=== PATIENT | male | born 1940 | race Caucasian/White ===

== ENCOUNTER 2022-07-16 12:24 | Emergency (ER) | payer MEDICARE, OTHER, SELFPAY ==
[2022-07-16] VITALS (10 sets, daily range): BP systolic 145–196; BP diastolic 70–104; PULSE 58–71; RESP 12–21; O2SAT 97–99; BMI 23.7
--- NOTE | 2022-07-16 12:36 | DI.RAD.S_ITS ---
PROCEDURE: XR CHEST 1V INDICATIONS: Shortness of breath TECHNIQUE: One view of the chest was acquired. COMPARISON: None. FINDINGS: Surgical changes and devices: None. Lungs and pleura: No focal consolidation. Dense nodule overlying the right mid lung measuring 1 cm along with smaller nodules of the right lung likely representing granulomas. No pleural effusions or pneumothorax. Mediastinum: Mediastinal contours appear normal. Heart size is normal. Bones and chest wall: No suspicious bony lesions. Overlying soft tissues appear unremarkable. IMPRESSION: No evidence of an acute cardiopulmonary abnormality. Likely granulomas of the right lung. Confirmation with outpatient CT could be performed if clinically warranted. Dictated by: Castro Baeza D.O. on 07/16/2022 at 11:56 Approved by: Castro Baeza D.O. on 07/16/2022 at 11:57
[2022-07-16 12:50] LABS: Add Manual Diff / Slide Review NO; Basophils Absolute Auto 100 /uL (0-100); Basophils Percent Auto 1.5 % (0-2); Eosinophils Absolute Auto 0 /uL (0-450); Eosinophils Percent Auto 0.6 % (2-4); Hematocrit 40.2 % (41-53); Hemoglobin 13.7 g/dL (13.5-17.5); Lymphocytes Absolute Auto 800 /uL (1100-4500); Lymphocytes Percent Auto 19.2 % (25-40); Mean Corpuscular Hemoglobin 30.1 PG (26-34); Mean Corpuscular Volume 88.5 fL (80-100); Monocytes Absolute Auto 300 /uL (0-900); Monocytes Percent Auto 7.1 % (3-14); Neutrophils Absolute Auto 2900 /uL (1500-7000); Neutrophils Percent Auto 71.6 % (50-75); Platelet Count 158 X10^3/uL (150-400); Red Blood Cell Count 4.55 X10^6/uL (4.5-5.9); Red Cell Distribution Width 13.5 % (11.6-14.8); White Blood Cell Count 4.1 X10^3/uL (4.5-11.0)
[2022-07-16 12:55] LABS: INR 1.1 (0.9-1.3); Prothrombin Time 12.3 SECONDS (10.1-12.7)
[2022-07-16 13:01] LABS: Alanine Aminotransferase 32 IU/L (<50); Albumin 4.5 g/dL (3.5-5.0); Albumin Globulin Ratio 1.7 (1.0-2.8); Alkaline Phosphatase 45 U/L (38-126); Aspartate Aminotransferase 30 IU/L (17-59); BUN Creatinine Ratio 19.5 (6-22); Blood Urea Nitrogen 15 mg/dL (9-20); Carbon Dioxide 34 mmol/L (22-32); Chloride 98 mmol/L (98-107); Estimated Glomerular Filt Rate > 60 mL/min (>60); Globulin 2.7 g/dL (1.7-4.1); Glucose 168 mg/dL (80-110); HEMOLYSIS < 15 (0-50); Potassium 3.4 mmol/L (3.4-5.1); Sodium 139 mmol/L (137-145); Total Protein 7.2 g/dL (6.3-8.2)
[2022-07-16 13:02] LABS: Lactate (Lactic Acid) 1.3 mmol/L (0.7-2.1)
[2022-07-16 13:13] LABS: NT-proBNP (BNP-Adult 18+) 754 pg/mL (<450); Troponin I 0.038 ng/mL (0.01-0.034)
--- NOTE | 2022-07-16 15:22 | ED_ITS ---
HPI - SOB/Dyspnea General Chief Complaint: Shortness of Breath/Dyspnea Stated Complaint: SOB, high B/P, pain, Gerd Time Seen by Provider: 07/16/22 13:41 History of Present Illness HPI Narrative: Patient 81-year-old male history of hypertension presenting today with increased difficulty breathing he reports that over the last 1 month he is had increasing orthopnea requiring him to sleep in a recliner. He says that at nighttime he has a freeze peripheral edema in his legs but actually does get better and go away when he is up and walking. He has some shortness of breath with exertion but it does not necessarily stop him. Some mild acid reflux but no significant pain. He is coughing clear phlegm no hemoptysis. She denies any fever or chills. He is having some random lower abdominal discomfort but still having bowel movements no nausea or vomiting. The pain is not significant today. He reports that last night he had severe episodes where he felt like he could not breathe and happened 2 times. He does have a remote history of prostate cancer. He is noted some increased difficulty voiding. He is no known coronary artery disease or congestive heart failure. He was a former smoker but only smoked for 1-2 years many years ago. Related Data Previous Rx's Medication Instructions Recorded furosemide 20 mg tablet 20 mg PO DAILY #3 tabs 07/16/22 Review of Systems Review of Systems ROS Unobtainable: All systems reviewed & are unremarkable except as noted in HPI and below Exam Initial Vital Signs Initial Vital Signs: Vital Signs Pulse Rate 71 07/16/22 12:33 Respiratory Rate 16 07/16/22 12:33 Blood Pressure 196/104 H 07/16/22 12:33 Pulse Oximetry 98 07/16/22 12:33 Oxygen Delivery Method Room Air 07/16/22 12:33 GENERAL: Alert pleasant 81-year-old male and in no acute distress. HEENT: Head atraumatic,EOMI, pupils reactive, face symmetric, moist mucous membranes CARDIOVASCULAR: Regular rate and rhythm without murmurs, rubs or gallops. RESPIRATORY: Breath sounds equal bilaterally, no wheezes rales or rhonchi. No conversational dyspnea. ABDOMEN: Soft, nontender. Normoactive bowel sounds all 4 quadrants. No guarding or rebound. EXTREMITIES: Normal range of motion, no clubbing or edema. Neurovascularly intact NEUROLOGICAL: Alert and oriented x4. SKIN: Warm, dry, no laceration, no petechiae, no rashes or lesions. Course Orders Ordered: ED Orders 07/16/22 12:36 XR chest 1V Stat EKG-12 Lead Stat Measure peak expiratory flow ONCE RT Consult Eval and Treat NOW 07/16/22 12:40 Complete Blood Count AUTO DIFF Stat Comprehensive Metabolic Panel Stat Lactate (Lactic Acid) Stat NT-proBNP (BNP-Adult 18+) Stat Prothrombin Time INR Stat Troponin I Stat 07/16/22 14:53 Trop I [Troponin I] Stat Discontinued Medications Furosemide (Furosemide 40 Mg/4 Ml Vial) 20 mg IV NOW ONE Stop: 07/16/22 15:40 Last Admin: 07/16/22 15:50 Dose: 20 mg Documented By: PRICILLA Vital Signs Vital signs: Vital Signs - 8 hr 07/16/22 12:33 07/16/22 12:35 07/16/22 12:35 Pulse Rate 71 71 Respiratory Rate 16 Blood Pressure 196/104 H 196/104 H Pulse Oximetry 98 98 Oxygen Delivery Method Room Air 07/16/22 12:44 07/16/22 12:44 07/16/22 12:45 Pulse Rate 70 Respiratory Rate 17 Blood Pressure 190/85 H 177/84 H Pulse Oximetry 99 Oxygen Delivery Method 07/16/22 12:45 07/16/22 13:00 07/16/22 13:00 Pulse Rate 66 63 Respiratory Rate 18 17 Blood Pressure 146/73 H Pulse Oximetry 99 98 Oxygen Delivery Method 07/16/22 13:15 07/16/22 13:15 07/16/22 13:30 Pulse Rate 60 58 L Respiratory Rate 15 20 Blood Pressure 148/71 H Pulse Oximetry 98 97 Oxygen Delivery Method 07/16/22 13:31 07/16/22 13:31 07/16/22 13:45 Pulse Rate 59 L Respiratory Rate 21 Blood Pressure 161/84 H 145/70 H Pulse Oximetry 98 Oxygen Delivery Method 07/16/22 13:45 07/16/22 17:10 Pulse Rate 59 L 58 L Respiratory Rate 17 12 Blood Pressure 175/80 H Pulse Oximetry 97 97 Oxygen Delivery Method Room Air MDM - SOB/Dyspnea Lab Data 07/16/22 12:40 07/16/22 12:40 Labs: Lab Results 07/16/22 07/16/22 07/16/22 Range/Units 12:40 12:40 12:40 WBC 4.1 L (4.5-11.0) X10^3/uL RBC 4.55 (4.5-5.9) X10^6/uL Hgb 13.7 (13.5-17.5) g/dL Hct 40.2 L (41-53) % MCV 88.5 (80-100) fL MCH 30.1 (26-34) PG MCHC 34.0 (30-36) % RDW 13.5 (11.6-14.8) % Plt Count 158 (150-400) X10^3/uL Neut % (Auto) 71.6 (50-75) % Lymph % (Auto) 19.2 L (25-40) % [place] % (Auto) 7.1 (3-14) % Eos % (Auto) 0.6 L (2-4) % Baso % (Auto) 1.5 (0-2) % Neut # (Auto) 2900 (6543-0852) /uL Lymph # (Auto) 800 L (5174-5252) /uL [place] # (Auto) 300 (0-900) /uL Eos # (Auto) 0 (0-450) /uL Baso # (Auto) 100 (0-100) /uL PT 12.3 (10.1-12.7) SECONDS INR 1.1 (0.9-1.3) Sodium 139 (137-145) mmol/L Potassium 3.4 (3.4-5.1) mmol/L Chloride 98 (98-107) mmol/L Carbon Dioxide 34 H (22-32) mmol/L BUN 15 (9-20) mg/dL Creatinine 0.77 (0.66-1.25) mg/dL Estimated GFR > 60 (>60) mL/min BUN/Creatinine Ratio 19.5 (6-22) Glucose 168 H (80-110) mg/dL Lactate (0.7-2.1) mmol/L Calcium 9.0 (8.4-10.2) mg/dL Total Bilirubin 1.0 (0.2-1.3) mg/dL AST 30 (17-59) IU/L ALT 32 (<50) IU/L Alkaline Phosphatase 45 (38-126) U/L Troponin I 0.038 H (0.01-0.034) ng/mL NT-Pro-B Natriuret Pep 754 H (<450) pg/mL Total Protein 7.2 (6.3-8.2) g/dL Albumin 4.5 (3.5-5.0) g/dL Globulin 2.7 (1.7-4.1) g/dL Albumin/Globulin Ratio 1.7 (1.0-2.8) 07/16/22 07/16/22 Range/Units 12:40 14:53 WBC (4.5-11.0) X10^3/uL RBC (4.5-5.9) X10^6/uL Hgb (13.5-17.5) g/dL Hct (41-53) % MCV (80-100) fL MCH (26-34) PG MCHC (30-36) % RDW (11.6-14.8) % Plt Count (150-400) X10^3/uL Neut % (Auto) (50-75) % Lymph % (Auto) (25-40) % [place] % (Auto) (3-14) % Eos % (Auto) (2-4) % Baso % (Auto) (0-2) % Neut # (Auto) (8382-2372) /uL Lymph # (Auto) (4465-6257) /uL [place] # (Auto) (0-900) /uL Eos # (Auto) (0-450) /uL Baso # (Auto) (0-100) /uL PT (10.1-12.7) SECONDS INR (0.9-1.3) Sodium (137-145) mmol/L Potassium (3.4-5.1) mmol/L Chloride (98-107) mmol/L Carbon Dioxide (22-32) mmol/L BUN (9-20) mg/dL Creatinine (0.66-1.25) mg/dL Estimated GFR (>60) mL/min BUN/Creatinine Ratio (6-22) Glucose (80-110) mg/dL Lactate 1.3 (0.7-2.1) mmol/L Calcium (8.4-10.2) mg/dL Total Bilirubin (0.2-1.3) mg/dL AST (17-59) IU/L ALT (<50) IU/L Alkaline Phosphatase (38-126) U/L Troponin I 0.034 (0.01-0.034) ng/mL NT-Pro-B Natriuret Pep (<450) pg/mL Total Protein (6.3-8.2) g/dL Albumin (3.5-5.0) g/dL Globulin (1.7-4.1) g/dL Albumin/Globulin Ratio (1.0-2.8) Urine Dip Bedside Urine Glucose Negative Bedside Urine Bilirubin - Negative Bedside Urine Ketone +/- 5 Urine Specific Taylor 1.015 Bedside Urine Occult Blood +/- Bedside Urine pH 6.5 Bedside Urine Protein - Negative Bedside Urine Urobilinogen - Negative Bedside Urine Nitrite - Negative Bedside Urine Leukocytes - Negative Esterase Imaging Data Chest x-ray: Radiologist's Impression: PROCEDURE:? XR CHEST 1V ? INDICATIONS:? Shortness of breath ? TECHNIQUE:? One view of the chest was acquired.? ? COMPARISON:? None. ? FINDINGS:? ? Surgical changes and devices:? None.? ? Lungs and pleura:? No focal consolidation.? Dense nodule overlying the right mid lung measuring 1 cm along with smaller nodules of the right lung likely representing granulomas.? No pleural effusions or pneumothorax.? ? Mediastinum:? Mediastinal contours appear normal.? Heart size is normal.? ? Bones and chest wall:? No suspicious bony lesions.? Overlying soft tissues appear unremarkable.? ? IMPRESSION:? ? No evidence of an acute cardiopulmonary abnormality. ? Likely granulomas of the right lung.? Confirmation with outpatient CT could be performed if clinically warranted.? ? ? Dictated by: Castro Baeza D.O. on 07/16/2022 at 11:56 ? ? ECG Data Interpretation: EKG 1. Normal sinus rhythm rate 69 NJ interval 138 QRS [address] changes no Q-waves EKG 2. Sinus rhythm rate 57 similar to previous no changes from prior MDM Narrative Medical decision making narrative: Patient 81-year-old male presenting today with increased shortness of breath and orthopnea. Symptoms are consistent with congestive heart failure although he does not have a history. BNP is not significantly elevated 754 troponins are also negative in decreasing. He has no significant lower extremity edema on exam. X-rays negative for significant pulmonary edema. He is not hypoxic and has no conversational dyspnea. At this time I think reasonable to put him on a few days of diuretics with outpatient follow-up for echocardiogram. He has normal EKGs and no EKG changes. No leukocytosis anemia infection. He also has no signs or symptoms infection. He apparently does have remote history of prostate cancer but similar not consistent with pulmonary embolism. Discharge Plan Departure Patient Disposition: Home Clinical Impression: CHF (congestive heart failure) Instructions: DI for Heart Failure Activity Restrictions/Additional Instructions: *You have been diagnosed with congestive heart failure *What to do: At this time you will need an outpatient echocardiogram and further testing with her PCP. Hopefully start breathing better over the next couple of days. *Continue to take medications as directed Lasix 20 mg once a day for 3 days starting tomorrow *Follow up with your primary care provider in 2-3 days or call [phone] *Return to ER if you should have increasing chest pain shortness of breath fever chills palpitations or any new, worsening or concerning symptoms Prescriptions: New furosemide 20 mg tablet 20 mg PO DAILY Qty: 3 0RF Referrals: Lizeth Isabel PA-C [Primary Care Provider] - Stand Alone Forms: Patient Portal/API
[2022-07-16 15:29] LABS: Troponin I 0.034 ng/mL (0.01-0.034)
[2022-07-16] MEDS: FUROSEMIDE 40 MG/4 ML VIAL 20 MG IV (15:50)
--- NOTE | 2022-07-16 16:23 | PC.NURSE ---
patient states that's he was not able to pee all of his urine out and he has a history of prostate cancer. Post void residual was 150 mls. notified.
== END 2022-07-16 17:13 | disposition home or self-care (01) ==
PROVIDERS: Emergency Provider Emergency Medicine; PCP Physician Assistant
DX: I50.9 Heart failure, unspecified (principal); R06.02 Shortness of breath; R06.01 Orthopnea
CPT/HCPCS: 36415; 71045; 80053; 81003; 83605; 83880; 84484; 85025; 85610; 93005; 93010; 96374; 99284; J1940

== ENCOUNTER → 2022-08-07 13:39 | Outpatient (CLI) | payer MEDICARE, OTHER, SELFPAY ==
--- NOTE | 2022-08-07 | DI.CT.S_ITS ---
PROCEDURE: CT CHEST WO CON INDICATIONS: Heart failure; Abnormal finding chest TECHNIQUE: Noncontrast 5 mm thick sections acquired from the pulmonary apices to the posterior costophrenic angles. 1 mm lung window, 5 mm thick coronal and sagittal and 7 mm axial MIP reformats were then acquired. For radiation dose reduction, the following was used: automated exposure control, adjustment of mA and/or kV according to patient size. COMPARISON: [facility], CR, XR CHEST 1 VIEW, 07/24/2022, 12:41. FINDINGS: Image quality: Excellent. Lungs and pleura: No acute air space opacities. No pleural effusions or pneumothorax. Central and peripheral airways are patent and normal in caliber. Calcified granuloma. Mediastinum: Heart size is normal. No pericardial effusion. No mediastinal adenopathy by size criteria. Thoracic aorta and central pulmonary arteries are normal in size. Esophagus is normal in caliber. No hiatal hernia. Three-vessel coronary artery calcifications. Bones and chest wall: No suspicious bony lesions. No vertebral body compression fractures. No axillary or supraclavicular adenopathy by size criteria. Thyroid gland demonstrates hypertrophy of the left thyroid lobe, with a probable 2.3 cm left-sided nodule. Abdomen: Gallbladder is distended, without radiopaque stones or wall thickening, a nonspecific finding. Punctate nonobstructing right-sided nephrolithiasis. IMPRESSION: Calcified granuloma, consistent with prior granulomas disease. Left thyroid lobe hypertrophy with a perceived 2.3 cm nodule. Consider thyroid ultrasound. Other chronic findings as above. Dictated by: August Alexis M.D. on 08/07/2022 at 15:47 Approved by: August Alexis M.D. on 08/07/2022 at 15:50
== END ==
PROVIDERS: PCP Physician Assistant; Referring Provider Physician Assistant; Visit Provider Physician Assistant
DX: R91.8 Other nonspecific abnormal finding of lung field (principal); I50.9 Heart failure, unspecified; J98.4 Other disorders of lung; E04.9 Nontoxic goiter, unspecified; N20.0 Calculus of kidney; K82.8 Other specified diseases of gallbladder; I25.10 Atherosclerotic heart disease of native coronary artery without angina pectoris
CPT/HCPCS: 71250

== ENCOUNTER 2022-11-17 09:13 | Day surgery (SDC) | payer MEDICARE, OTHER, SELFPAY ==
--- NOTE | 2022-11-17 | PATH_ITS ---
[facility] Accession Number: [id number] No. of containers..01 Tissue . 01 Material submitted: . esophagus, E-G Junction - GE JUNCTION . 01 Diagnosis: Gastroesophageal Junction, Biopsy: Squamous epithelium with no diagnostic abnormality. Intraepithelial eosinophils are not increased. Negative for dysplasia and malignancy. [facility] 11/22/2022 1114 Local . 01 Comment: Columnar mucosa is not identified in the sections examined. . 01 Electronically signed: . Adrianna Jeronimo MD, Pathologist NPI- [id number] . 01 Gross description: . GE JUNCTION: Received in formalin are 4 fragment(s) of mora, soft tissue measuring 0.1 x 0.1 x 0.1 cm to 0.4 x 0.2 x 0.2 cm submitted entirely in 1 cassette(s) /[facility] 11/20/2022 1947 Local . 01 Microscopic: . An ABPAS stain was performed to evaluate for fungal organisms and is negative. The control stain showed appropriate reactivity. Additional levels were examined. . 01 Pathologist provided ICD-10: R10.13 . 01 CPT . 299018, 799202 Specimen Comment: A courtesy copy of this report has been sent to [phone] Performed at: 01 [facility] [address] [facility], [place], [place] [id number] MD El Singh MD Phone: [phone]
[2022-11-17] MEDS: LACTATED RINGERS 1,000 ML 150 ML IV (09:46)
[2022-11-17 09:59] VITALS: BMI 21.5
[2022-11-17 10:09] VITALS: BP 168/82; PULSE 68; RESP 16; TEMP 36.2; O2SAT 100
--- NOTE | 2022-11-17 11:07 | PM.PREOP ---
Pre-operative Note Interval Note History & Physical reviewed/Exam performed by Physician: Yes Changes to H&P: No
--- NOTE | 2022-11-17 11:13 | P.OP.EGD_ITS ---
Operative Date/Time/Diagnoses Date of procedure: 11/17/22 Time of procedure: 11:13 Pre-op diagnosis: GERD Procedure & Clinicians Study performed: Diagnostic Esophagoduodenoscopy Same procedure as scheduled: Yes Indications: 82-year-old man with breakthrough episodes of GERD despite PPI therapy Surgeon: Eddie Mckay Procedure Notes Procedure in detail: The history and physical was performed/updated and the patient is ASA class is 3. The procedure was discussed in detail with the patient. Potential risks complications including infection, bleeding, missed diagnosis, perforation, need for surgery, and were explained. Their questions were answered and inf ormed consent was obtained. Patient placed in left lateral decubitus position. Time out was performed. Procedural sedation was administered by Anesthesia. A bite block was placed. the scope was inserted into the mouth and advanced through the esophagus and into the stomach. The stomach was without masses, ulcers or gastritis. The pylorus was intubated and the duodenum was normal to the 2nd portion. No significant hiatal hernia. The scope was withdrawn into the esophagus the Z line was seen at 40 cm from the incisions. There was mild esophagitis at the GE junction, no andi Hutton's. Biopsies of the GE junction were performed with forceps.. Stomach was desufflated and scope removed. The patient tolerated the procedure well and will be discharged when they meet criteria. Specimen(s): other (GE junction) Complications: none Impression: Esophagitis Post-procedure Plan for aftercare: Continue omeprazole 40 mg daily. If inadequate may increase to 40 mg twice daily. Disposition: same day surgery
[2022-11-17 11:25] VITALS: BP 133/68; PULSE 60; RESP 12; TEMP 36.1; O2SAT 96
[2022-11-17 11:30] VITALS: BP 133/75; PULSE 62; RESP 16; O2SAT 98
[2022-11-17 11:35] VITALS: BP 137/77; PULSE 59; RESP 16; O2SAT 98
[2022-11-17 11:42] VITALS: BP 153/86; PULSE 60; RESP 16; TEMP 36.3; O2SAT 99
== END 2022-11-17 11:55 | disposition home or self-care (01) ==
PROVIDERS: PCP Physician Assistant; Referring Provider Surgery; Visit Provider Surgery
PROC: 0DJ08ZZ Inspection of Upper Intestinal Tract, Via Natural or Artificial Opening Endoscopic (ICD-10-PCS; CPT 43235; principal; 2022-11-17 10:45)
DX: K21.00 Gastro-esophageal reflux disease with esophagitis, without bleeding (principal)
CPT/HCPCS: 43239